=== PATIENT | female | born 1940 | race Caucasian/White ===

== ENCOUNTER → 2017-09-18 10:51 | Outpatient (CLI) | payer MEDICARE, OTHER, SELFPAY ==
--- NOTE | 2017-09-18 10:55 | BI_ITS ---
MAMMOGRAPHY - UNILATERAL SCREENING: RIGHT BREAST REASON FOR EXAM: Female, 76 years old. Routine annual screening examination (unilateral). PERTINENT HISTORY: Personal history of breast cancer. The patient is status post right mastectomy. TECHNIQUE: Digital unilateral breast may (3D mammographic acquisition) in the CC and MLO projections. 2-D mediolateral oblique (MLO) and craniocaudad (CC) views of both breasts were obtained. CAD: Full Field Digital Mammography with Computer Added Detection was performed. COMPARISON: Comparison is made with prior abdomen examination dated September 02, 2016. FINDINGS: Breast Composition: There are scattered areas of fibroglandular density. There is a stable 7.4 mm x 4.5 mm well-defined nodule in the upper medial portion of the right breast. Stable scattered calcifications in the breasts. There is a linear calcification in the axillary region of the breast measuring 2.1 cm in longitudinal dimension by 3 mm in transverse dimension. This may represent suture granuloma. No other significant abnormalities are identified. There has been no significant change since the prior study. BI/UNILAT RT SCRN W/CAD IMPRESSION: Stable unilateral screening mammogram. Yearly follow-up mammogram recommended. (A) ASSESSMENT CATEGORY: BIRADS Category 2: Benign. A letter regarding these results will be sent to the patient by the facility within 30 days. Approximately 10% of breast cancers are not detected by mammography. A normal mammogram should not delay biopsy of a clinically suspicious abnormality. [id number] Electronically Signed: Ford Monroe MD at 12:59 EDT Tel [phone], Service support ,
== END ==
PROVIDERS: Family Provider Family Medicine; PCP Family Medicine; Visit Provider Family Medicine
DX: Z12.31 Encounter for screening mammogram for malignant neoplasm of breast (principal)
CPT/HCPCS: 77061; 77063; 77067; G0279

== ENCOUNTER → 2017-11-01 13:27 | Outpatient (CLI) | payer MEDICARE, OTHER, SELFPAY ==
[2017-11-01 16:09] LABS: Absolute Lymphocyte Count 1.11 X10^3/ul (0.83-4.51); Absolute Neutrophil Count 7.2 X10^3/uL (2.0-7.7); Basophil# 0.03 X10^3/uL; Basophil% 0.3 % (0-1); Eosinophil# 0.04 X10^3/uL; Eosinophils% 0.4 % (0-5); Hematocrit 40.9 % (37-47); Hemoglobin 13.5 g/dl (12.0-15.0); Lymphocyte # 1.11 X10^3/ul (4.0); Lymphocyte % 12.2 % (19-41); Mean Corpuscular Hgb 29.2 pg (27.0-32.0); Mean Corpuscular Volume 88.5 fL (81-99); Mean Platelet Vol. 9.5 fl (6.2-12.0); Monocyte# 0.66 X10^3/uL; Monocyte% 7.3 % (0-10); Neutrophil # 7.24 X10^3/uL (2.7-7.7); Neutrophil % 79.7 % (47-70); Platelet Count 263 K/mm3 (150-450); RBC Distribution Width CV 13.4 % (11.6-14.6); RBC Distribution Width SD 42.7 fl (35.1-43.9); Red Blood Count 4.62 M/mm3 (4.2-5.4); White Blood Count 9.1 K/mm3 (4.4-11.0)
[2017-11-01 16:14] LABS: POSITIVE COUNT NO; POSITIVE DIFFERENTIAL NO; POSITIVE MORPHOLOGY NO
[2017-11-01 16:29] LABS: ALB/GLOB Ratio 0.9 RATIO (0.9-2.4); AST(SGOT) 14 U/L (15-37); Alanine Aminotransfer ALT/SGPT 22 U/L (13-56); Albumin, Serum 3.6 g/dL (3.2-5.0); Alkaline Phosphatase 61 U/L (45-117); Anion Gap 7 (5-15); BUN 16 mg/dL (7-18); BUN/Creat Ratio 24.6 RATIO (10-20); CRP < 2.90 mg/L (0.0-3.0); Calcium,Total 9.1 mg/dL (8.5-10.1); Chloride 105 mmol/L (98-107); Creatinine, Serum 0.65 mg/dL (0.55-1.02); EST Glomerular Filtration Rate 94 mL/min (>60); Est Glom Filt Rate - Afr Amer 114 mL/min (>60); Globulin 3.8 g/dL (2.2-4.2); Glucose 105 mg/dL (74-106); Lipase 96 U/L (73-393); Potassium 3.8 mmol/L (3.5-5.1); Protein, Total 7.4 g/dL (6.4-8.2); Sodium Level 141 mmol/L (136-145)
== END ==
PROVIDERS: Family Provider Family Medicine; PCP Family Medicine; Visit Provider Family Medicine
DX: K29.00 Acute gastritis without bleeding (principal); K59.09 Other constipation
CPT/HCPCS: 36415; 80053; 83630; 83690; 85025; 86140; 87177; 87209; 87493; 87506

== ENCOUNTER → 2017-12-01 09:36 | Outpatient (CLI) | payer MEDICARE, OTHER, SELFPAY ==
[2017-12-01 10:21] LABS: Cholesterol 185 mg/dL (200); High Density Lipoprotein 68 mg/dL; Triglycerides 86 mg/dL; Very Low Density Lipoprotein 17 mg/dL (5-40)
[2017-12-01 10:30] LABS: Hemoglobin A1c 6.1 % (4.2-6.3)
== END ==
PROVIDERS: Family Provider Family Medicine; PCP Family Medicine; Visit Provider Family Medicine
DX: E78.5 Hyperlipidemia, unspecified (principal); R73.03 Prediabetes
CPT/HCPCS: 36415; 80061; 83036

== ENCOUNTER → 2018-09-23 | Outpatient (CLI) | payer MEDICARE, OTHER, SELFPAY ==
[2016-12-22 07:16] VITALS: BMI 33.4
[2018-09-23 10:06] LABS: Absolute Lymphocyte Count 1.46 X10^3/ul (0.83-4.51); Absolute Neutrophil Count 4.8 X10^3/uL (2.0-7.7); Basophil# 0.04 X10^3/uL; Basophil% 0.6 % (0-1); Eosinophil# 0.15 X10^3/uL; Eosinophils% 2.1 % (0-5); Hematocrit 38.6 % (37-47); Hemoglobin 12.5 g/dl (12.0-15.0); Lymphocyte # 1.46 X10^3/ul (4.0); Lymphocyte % 20.8 % (19-41); Mean Corp Hgb Conc 32.4 g/gl (32-36); Mean Corpuscular Hgb 28.6 pg (27.0-32.0); Mean Corpuscular Volume 88.3 fL (81-99); Mean Platelet Vol. 8.9 fl (6.2-12.0); Monocyte# 0.58 X10^3/uL; Monocyte% 8.3 % (0-10); Neutrophil # 4.77 X10^3/uL (2.7-7.7); Neutrophil % 68.1 % (47-70); Platelet Count 212 K/mm3 (150-450); RBC Distribution Width CV 14.1 % (11.6-14.6); RBC Distribution Width SD 45.6 fl (35.1-43.9); Red Blood Count 4.37 M/mm3 (4.2-5.4)
[2018-09-23 10:08] LABS: POSITIVE COUNT NO; POSITIVE DIFFERENTIAL NO; POSITIVE MORPHOLOGY NO
[2018-09-23 10:19] LABS: Hemoglobin A1c 6.1 % (4.2-6.3)
[2018-09-23 10:33] LABS: AST(SGOT) 13 U/L (15-37); Alanine Aminotransfer ALT/SGPT 18 U/L (13-56); Albumin, Serum 3.6 g/dL (3.2-5.0); Alkaline Phosphatase 71 U/L (45-117); Anion Gap 6 (5-15); BUN 21 mg/dL (7-18); BUN/Creat Ratio 29.6 RATIO (10-20); Calcium,Total 9.2 mg/dL (8.5-10.1); Chloride 106 mmol/L (98-107); Cholesterol 187 mg/dL (200); Creatinine, Serum 0.71 mg/dL (0.55-1.02); EST Glomerular Filtration Rate 85 mL/min (>60); Est Glom Filt Rate - Afr Amer 103 mL/min (>60); Globulin 3.6 g/dL (2.2-4.2); Glucose 105 mg/dL (74-106); High Density Lipoprotein 66 mg/dL; Protein, Total 7.2 g/dL (6.4-8.2); Sodium Level 142 mmol/L (136-145); Triglycerides 121 mg/dL; Very Low Density Lipoprotein 24 mg/dL (5-40)
[2018-09-23 10:38] LABS: Microalbumin,Random Urine 9.6 mg/L (NO RANGE EST.); Microalbumin:Creatinine Ratio 8.9 mg/g CRE (<30 mg/g CRE)
== END | disposition home or self-care (01) ==
LOC: LAB.FUTURE 09:39
PROVIDERS: Family Provider Family Medicine; PCP Family Medicine; Referring Provider Family Medicine; Visit Provider Family Medicine
DX: I10 Essential (primary) hypertension (principal); R73.03 Prediabetes; Z51.81 Encounter for therapeutic drug level monitoring; R53.83 Other fatigue; E78.5 Hyperlipidemia, unspecified
CPT/HCPCS: 36415; 80053; 80061; 82043; 82570; 83036; 85025

== ENCOUNTER → 2018-10-04 | Outpatient (CLI) | payer MEDICARE, OTHER, SELFPAY ==
--- NOTE | 2018-10-04 16:07 | MRI_ITS ---
STUDY: MRI BRAIN WITHOUT CONTRAST REASON FOR EXAM: Female, 77 years old. Memory loss, headache and anxiety. TECHNIQUE: Standardized multiplanar fat and water weighted pulse sequences were obtained. COMPARISON: Prior comparison studies are not available for review at this time. FINDINGS: There is mild cerebral atrophy with widening of the extra-axial spaces and ventricular dilatation. Normal white matter tracts of the supratentorial brain. There is confluent periventricular hyperintensity cloaking the lateral ventricles, consistent with periventricular leukoaraiosis. There is no evidence for recent intracranial ischemia or other cause of cytotoxic edema on diffusion weighted imaging (DWI). Normal T2* images of the brain without demonstrated susceptibility artifact. There is no demonstrated hemosiderin stain. Normal bilateral basal ganglia. Normal thalami. There is no extra-axial fluid accumulation. Normal flow voids within the major intracranial circulation suggesting patency by spin echo criteria. Normal sella turcica, pituitary gland, infundibular stalk, optic chiasm and hypothalamus. Normal tectal plate and pineal gland. Normal midbrain, gerson and medulla. There are mild involutional changes of the cerebellum. There are large basal cisterns. Normal bilateral temporal bones. Normal bilateral internal auditory canals. There is an ocular lens implant of the left globe. Normal right globe. The intraorbital contents otherwise are normal. There is mild mucoperiosteal thickening within the ethmoid sinuses. Mucous retention cysts are visible in bilateral maxillary sinuses. Normal calvarium and skull base. Normal visualized soft tissue structures. Normal visualized upper cervical spine. MRI/Brain without Contrast IMPRESSION: 1. Involutional changes of the brain, as described above. 2. No MR evidence of acute infarct. Electronically Signed: Bertha Pandey MD at 9:04 EDT , Service support ,
== END | disposition home or self-care (01) ==
LOC: MRI 16:02
PROVIDERS: Family Provider Family Medicine; PCP Family Medicine; Referring Provider Family Medicine; Visit Provider Family Medicine
DX: R41.3 Other amnesia (principal); R51 Headache
CPT/HCPCS: 70551

== ENCOUNTER → 2018-10-20 | Outpatient (CLI) | payer MEDICARE, OTHER, SELFPAY ==
[2016-12-22 07:16] VITALS: BMI 33.4
--- NOTE | 2018-10-20 10:27 | BI_ITS ---
MAMMOGRAPHY - UNILATERAL SCREENING: RIGHT BREAST REASON FOR EXAM: Female, 77 years old. Routine annual screening examination (unilateral). PERTINENT HISTORY: Personal history of breast cancer. Prior left mastectomy. Mother with breast cancer. TECHNIQUE: Digital unilateral breast rita (3D mammographic acquisition) in the CC and MLO projections. 2-D mediolateral oblique (MLO) and craniocaudad (CC) views of both breasts were obtained. CAD: Full Field Digital Mammography with Computer Added Detection was performed. COMPARISON: Comparison is made with prior examination of September 18, 2017 and August 16, 2013. FINDINGS: Breast Composition: There are scattered areas of fibroglandular density. There are no dominant masses or suspicious calcifications. Stable 7.4 mm x 4.5 mm well-defined nodule in the axillary region of the right breast. Stable dense calcification in the axillary region of the right breast as well. No other significant abnormalities are identified. There has been no significant change since the prior study. BI/SCREEN MAMM (CAD) W/RITA UNI R IMPRESSION: Stable unilateral screening mammogram. Yearly follow-up mammogram recommended. (A) ASSESSMENT CATEGORY: BIRADS Category 2: Benign. A letter regarding these results will be sent to the patient by the facility within 30 days. Approximately 10% of breast cancers are not detected by mammography. A normal mammogram should not delay biopsy of a clinically suspicious abnormality. [id number] Electronically Signed: Ford Monroe, at 11:40 EDT , Service support ,
== END | disposition home or self-care (01) ==
LOC: OPBI 10:25
PROVIDERS: Family Provider Family Medicine; PCP Family Medicine; Referring Provider Family Medicine; Visit Provider Family Medicine
DX: Z12.31 Encounter for screening mammogram for malignant neoplasm of breast (principal)
CPT/HCPCS: 77061; 77067; G0279

== ENCOUNTER 2019-02-02 15:00 | Outpatient (RCR) | payer MEDICARE, OTHER, SELFPAY ==
--- NOTE | 2018-12-29 17:00 | SOAP_ITS ---
REASON FOR REFERRAL: The Patient is a 78 year old female referred for clinical assessment of the patients cognitive communication abilities at [facility] on 12/29/2018 due to concerns for progressing declines in information recall and increasing presence and frequency of anomia. The Patient reports her cognitive based symptoms began following a 2016 computer ?hack?, in which she had followed up with a prompt on her computer to contact a support personnel, which appears to have jeopardized her bank account temporarily. She states that her cognitive communication abilities have gradually declined from this point. She further reports she no longer trusts anyone following this incident, and reportedly does seem to experience anxiety at a more rapid rate. She notes that it has become much harder to find the correct word during conversations, and becomes somewhat flustered easily, which leads to her often straying from topics and losing her train of thought. This leads to the Patient often from conversation opportunities, and experiences difficulties interjecting herself into conversations. She reports gradual and now persistent distractibility, with the Patient reporting disengagement from tasks prior to completion, with multiple tasks left half completed, and does notice she will enter a room and forget why she was going there (though often does remember given time). She reports she has become less involved in previous hobbies and enjoyable activities (oil painting, crocheting, etc.), and reports she often just ?sits and watches TV?. 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 They further notice a gradual change in her memory capabilities, and more notably have noticed a gradual deterioration in her ability to express herself, often getting stuck on words, and has been noted to occasionally repeat herself at higher frequencies. She has been noted to make mistakes with less cognitively complex tasks that are atypical from her prior level of functioning (cooking, shopping), and are significantly concerned with her ability to manage her finances. She currently resides alone in [place], though reports she has considered moving to the [place] area to be closer to family upon their recommendations, though is hesitant to leave her current residence and possibly relinquish further independence. She is not vocationally active (retired from [employer] in 1999; management), though currently maintains social roles and responsibility (cares for friends who are ill, involved in her sikhism, etc.). She has graduated from high school, with completion of some post-secondary management classes. She currently ambulates independently without the use of an assistive device, though is reportedly considering knee replacement surgery. She reports she manages her own medication, though occasionally forgets to take her medication. 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 Her affect appears somewhat flat and under-reactive at times, though does noticeably become anxious and somewhat easily frustrated with more complex tasks; despite this she remains pleasant and agreeable throughout. MEDICAL HISTORY: Remote breast cancer, anxiety and depression, obstructive sleep apnea, hypertension, hyperlipidemia, obesity, osteoarthritis, gastroesophageal reflux disease. ADDITIONAL OBJECTIVE ASSESSMENT RESULTS: 10/05/2018 MRI revealed involutional changes of the brain; no evidence of acute infarct; confluent periventricular hyperintensity cloaking the lateral ventricles, consistent with periventricular leukoaraiosis; mild involutional changes of the cerebellum FUNCTIONAL STATUS ASSESSMENT RESULTS: [place]ahan Index of [place] in Activities of Daily Livin/6 Bathin Dressin Toiletin Transferrin Continence: 1 Feedin Mickey ? Ray Instrumental Activities of Daily Living Scale (IADL): 7/8 Ability to Use Telephone: 1 Shoppin Food Preparation: 1 Housekeepin Laundry: 1 Mode of Transportation: 1 Responsibility for Own Medications: 1 Ability to Handle Finances: 1 Functional Ambulation Category (FAC): 5 (ambulatory ? independent) COGNITIVE COMMUNICATION ASSESSMENT QUESTIONNAIRES: Patient Health Questionnaire (PHQ-9): 8 (mild risk of depression) Generalized Anxiety Disorder 7-item (SUYAPA-7) scale: 5 (mild risk of anxiety disorder) [place] Social Network Scale ? 6 (LSNS-6): Family: 12/29 [place]: 02/28 AD8 Dementia Screening Interview: 11/21 Judgment: 1 (positive change) Interest in hobbies: 1 (positive change) Repeating stories / questions: 1 (positive change) Learning new processes: 1 (positive change) Orientation: 0 (negative) resource management specialist: 1 (positive change) Recalling appointments: 1 (positive change) Daily problems thinking / rememberin (positive change) Symptoms of Early Dementia-11 Questionnaire (SED-11Q): Caregivers: 12/25 Patient: 09/24 Dementia Severity Rating Scale (DSRS): 15 (mild) Memory: 3 Speech & Language: 2 Recognition of Family Members: 0 Orientation to Time: [address]: 1 Ability to Make Decisions: 3 Social and Community Activity: 2 Home Activities and Responsibilities: 2 Personal Care ? Cleanliness: 0 Eatin Control of Urination and Bowels: 0 Ability to Get From Place to Place: 1 COGNITIVE COMMUNICATION ASSESSMENT RESULTS: Abbreviated Mental Test ? 4 (AMT-4): 4 (normal) Assessment Test for Delirium & Cognitive Impairment (4AT): 0 (normal) Short Orientation Memory Concentration Test (SOMCT): 24/28 (minimal impairment) [place] Test: Correct: 35/35 Total Time: 4:38 Omissions (right): 0 Omissions (left): 0 Omissions (total): 0 Distractors: 0/264 Scanning Strategy: horizontal Digit Memory Test (DMT): Forward Score: 7 Backwards Score: 4 Total: 11 Standard Score: 75 Percentile Equivalent: 5th Trial Making Test (TMT): Part A: 68 seconds (> 78 seconds abnormal) Errors: 0 Part B: 151 seconds (> 273 seconds abnormal) Errors: 0 Executive Interview (EXIT-25): 14 (< 15 suggests executive functioning deficits) Number / Letter: 1 Word Fluency: 2 Design Fluency: 1 Anomalous Sentence Reproduction: 1 Thematic Perception: 0 Memory / Distraction: 1 Inference Task: 0 Automatic Behavior I: 0 Automatic Behavior II: 1 Grasp Reflex: 0 Social Habit I: 1 Motor Impersistence: 0 Snout Reflex: 0 Finger-Nose: 0 Go / No-go: 2 Echopraxia I: 0 [place]uria Hand Sequence I: 0 [place] Hand Sequence II: 2 Role Player Task: 0 Echopraxia II: 0 Complete Command Task: 1 Serial Order Reversal Task: 0 Counting Task: 0 Utilization Behavior: 0 Imitation Behavior: 1 [place] Naming Test ? Second Edition (BNT-2): Number of correct responses: 31 Stimulus cues provided: 30 Correct following stimulus cues: 0 Phonological Paraphasias: 1 Verbal Paraphasias: 0 Neologistic Paraphasias: 0 Multi-word Paraphasias: 0 Perceptual Paraphasias: 0 TOTAL NUMBER CORRECT: 48 TOTAL SCORE: 31 (mean: 48.9, SD: 6.3) Aphasia Severity Rating Scale (ASRS): 3-4 (of 5) Apraxia of Speech Rating Scale (ASRS-v1): 0 (not present) COGNITIVE COMMUNICATION ASSESSMENT RESULTS (QUALITATIVE): LANGUAGE FUNCTIONING: language profile marked by frequent naming errors (anomia / dysnomia) most prominent during confrontation naming tasks vs. conversational speech, though this does occur at a higher than normal frequency than expected and is paired with subjective increase in anxiety; does occasionally demonstrate benefit from circumlocution; somewhat flat effect noted; occasional prolongations during more complex tasks, though at lower frequencies, would not classify as a neurogenic disfluency; repetition intact for smaller stimulus items, with errors during larger stimulus items likely attributed to working memory deficits; no paraphasias; no apraxia; no clinically significant dysarthria or vocal abnormalities; no agraphia; no alexia. EXECUTIVE FUNCTIONING: suboptimal thought organization with noted circumstantial thought processing (eventually gets to point after talking around) that often leads to fragmented thoughts and an inability to completely express her thought, with occasional obsessive thinking (returns to prior response / topic without a natural transition); she is quicker to frustration/ quickly becomes overwhelmed with more complex tasks and occasionally requires encouragement to continue tasks; she is under-reactive at times, similar to a subtle abulia vs. apathetic affect. MEMORY: disrupted working memory complicating encoding and consolidation without a clear primacy or recency effect; overall preserved prospective memory (though this can additionally be complicated by her attention / executive functioning disruptions); overall preserved explicit and implicit memory. ATTENTION: preserved sustained attention; rather impaired attention as the complexity of demands increase (divided, selective, and alternating attention). VISUOSPATIAL ABILITIES: no signs of disrupted visuospatial functioning appreciated. COMPLICATING FACTORS: complicating factors would include possible depression / anxiety associated with her apparent cognitive communication impairments and concomitant disruption in her personal relationships and responsibilities. RESULTS OF THE EVALUATION: The Patient presents with mild to moderate cognitive communication deficits with mild to moderate anomia with no current clear etiology of cause, though one would suspect a progressive neurological cause, with results possibly impacted by anxiety / depression. RECOMMENDATIONS FOR INTERVENTION: The Patient requires continued skilled speech-language intervention targeting training and implementation of internal and external compensatory cognitive processing compensatory strategies (with initial considerations for external supports and time pressure management training); training and implementation of recommended expressive communication strategies targeting anomia (with considerations for sematic feature analysis training); training and implementation of a home based cognitive maintenance program to promote the highest level of maintained cognitive communication functioning; Patient and family education regarding cognitive communication changes associated with the appropriate etiological causes (pending workup); and continued formal and informal assessment of the cognitive communication profile throughout the intervention cycle, with adjustments to the treatment plan as clinically indicated. FUNCTIONAL OUTCOMES: OUTCOME 1: the Patient will utilize compensatory cognitive processing strategies identified and implemented during structured therapeutic to facilitate improved cognitive processing and achievement of the highest level of safe, independent functioning with 100% accuracy over 2 consecutive sessions. OUTCOME 2: the Patient will independently utilize internal word finding strategies (semantic feature analysis) to reduce the presence of anomia and facilitate listener comprehension during both structured therapeutic tasks and unstructured / conversational speech, in 2 out of 3 sessions. OUTCOME 3: the Patient will participate in training and implementation of a home based cognitive maintenance program established within the intervention cycle to facilitate preserved cognitive communication abilities, and safe independent functioning. OUTCOME 4: the Patient will participate in continual assessment of the cognitive communication profile to facilitate comprehensive objective date in regards to changes in baseline level of cognitive functioning at the supervised level. OUTCOME 5: goal adjustment as needed Ruy Lazaro M.A., CCC-QUILTING MACHINE OPERATOR, CBIS MBSImP Certified, LSVT Certified [facility] Speech-Language Pathology Department [email or web address]
== END 2019-02-02 19:00 | disposition home or self-care (01) ==
LOC: SP 15:00
PROVIDERS: Family Provider Family Medicine; PCP Family Medicine; Referring Provider Family Medicine; Visit Provider Family Medicine
DX: G31.84 Mild cognitive impairment of uncertain or unknown etiology (principal); R47.89 Other speech disturbances
CPT/HCPCS: 92507; 92523

== ENCOUNTER → 2019-02-08 10:57 | Outpatient (CLI) | payer MEDICARE, OTHER, SELFPAY ==
[2016-12-22 07:16] VITALS: BMI 33.4
[2019-02-08 12:05] LABS: Vitamin B12 393 pg/mL (211-911)
[2019-02-08 12:07] LABS: Thyroid Stim Hormone (TSH) 1.43 uIU/mL (0.358-3.74)
[2019-02-10 01:39] LABS: Rapid Plasmin Reagin (RPR) NONREACTIVE (NONREACTIVE)
== END ==
PROVIDERS: Family Provider Family Medicine; PCP Family Medicine; Referring Provider Psychiatry & Neurology Neurology; Visit Provider Psychiatry & Neurology Neurology
DX: R41.3 Other amnesia (principal)
CPT/HCPCS: 36415; 82607; 84443; 86592

== ENCOUNTER → 2019-02-20 10:11 | Outpatient (CLI) | payer MEDICARE, OTHER, SELFPAY ==
--- NOTE | 2019-02-20 10:30 | PET_ITS ---
EXAMINATION: FDG PET BRAIN INDICATIONS: A 78-year-old female with history of memory loss, cognitive impairment. COMPARISON EXAMINATION: MRI of the brain report dated 10/04/18. TECHNIQUE: Following the intravenous administration of 10.3 mCi of F-18 deoxyglucose via the right antecubital fossa, multiplanar image acquisitions of the brain obtained at 60 minutes post radiopharmaceutical administration reveal: SERUM GLUCOSE LEVEL: 96 mg/dl. HEIGHT: 67 inches. WEIGHT: 182 lbs FINDINGS: 1. Qualitative, visual analysis demonstrates decreased glucose metabolism manifest in the bilateral temporal, as well as right parietal cerebral cortex. There is otherwise relatively symmetric and preserved glucose metabolism noted in the bilateral frontal, left parietal, bilateral occipital, as well as right-left cerebellar hemispheres and basal ganglia. PET/PET Brain Metabolic Eval IMPRESSION: 1. Altered glucose metabolism defined in the right parietal and bilateral temporal cerebral cortex is most consistent with cholinergic dysfunction likely attributed to dementia, Alzheimer type. (Sirena and Clifton, Molecular Imaging and Biology 4:239, 2004). Electronic Signature Yordan Funez D.O. Electronically Signed: Yordan Funez DO at 23:33 EDT Tel , Service support ,
== END ==
PROVIDERS: Family Provider Family Medicine; PCP Family Medicine; Referring Provider Psychiatry & Neurology Neurology; Visit Provider Psychiatry & Neurology Neurology
DX: R41.3 Other amnesia (principal); Z85.9 Personal history of malignant neoplasm, unspecified
CPT/HCPCS: 78608; A9552

== ENCOUNTER 2019-09-19 11:42 | Emergency (ER) | payer MEDICARE, OTHER, SELFPAY ==
[2019-09-19 11:44] VITALS: BP 159/80; PULSE 71; RESP 18; TEMP 36.3; O2SAT 100; BMI 25.3
--- NOTE | 2019-09-19 11:54 | CT_ITS ---
STUDY: CT BRAIN WITHOUT CONTRAST REASON FOR EXAM: Female, 78 years old. FALL, STRUCK HEAD ON CONCRETE, SWELLING ABOVE LT EYEBROW, NO LOC RADIATION DOSAGE (If Supplied By Facility): CTDIvol = ( 44.99 ) mGy, DLP = ( 812.98 ) mGycm TECHNIQUE: Transaxial CT imaging of the brain was performed without administration of intravenous contrast material. Individualized dose optimization techniques were used for this CT. COMPARISON: No relevant priors. FINDINGS: Soft tissue hematoma overlying the left orbital and left frontal regions. There is hyperostosis frontalis internus. There is mild cerebral atrophy with widening of the extra-axial spaces and ventricular dilatation. There are areas of decreased attenuation within the white matter tracts of the supratentorial brain, consistent with microvascular disease changes. Normal basal ganglia and thalami. Normal brainstem. Normal cerebellum. There is no intracranial hemorrhage. There are no findings of an acute ischemic infarction. Normal visualized paranasal sinuses. CT/Brain/Head without Contrast IMPRESSION: Chronic involutional changes of the brain. Soft tissue swelling and hematoma overlying the left orbit and left frontal bones. Electronically Signed: Ford Monroe, at 12:37 EDT , Service support ,
--- NOTE | 2019-09-19 11:54 | CT_ITS ---
STUDY: CT FACIAL BONES WITHOUT CONTRAST REASON FOR EXAM: Female, 78 years old. FALL, STRUCK HEAD ON CONCRETE, SWELLING ABOVE LT EYEBROW, NO LOC RADIATION DOSAGE (If Supplied By Facility): CTDIvol = ( 29.38 ) mGy, DLP = ( 591.53 ) mGycm TECHNIQUE: The patient was scanned in a multi detector CT scanner. Sagittal and coronal images were reconstructed. Individualized dose optimization techniques were used for this CT. COMPARISON: None. FINDINGS: Soft tissue swelling and hematoma overlying the left orbit and left frontal bone. 7.3 mm retention cyst or polyp in the inferior anterior aspect of the left maxillary sinus. 5.3 mm polyp or retention cyst in the anterior aspect of the right maxillary sinus. Normal orbital alonso and orbital contents. Normal nasal bones and anterior nasal spine. Normal facial bones. There is no demonstrated fracture. Normal visualized paranasal sinuses. CT/Sinus/Facial Bone IMPRESSION: Small mucosal polyps/cysts in the maxillary sinuses. Soft tissue swelling and hematoma overlying the left orbit and left frontal bone. Electronically Signed: Ford Monroe, at 12:39 EDT , Service support ,
--- NOTE | 2019-09-19 11:54 | CT_ITS ---
STUDY: CT CERVICAL SPINE WITHOUT CONTRAST REASON FOR EXAM: Female, 78 years old. FALL, STRUCK HEAD ON CONCRETE, SWELLING ABOVE LT EYEBROW, NO LOC RADIATION DOSAGE (If Supplied By Facility): CTDIvol = ( 17.83 ) mGy, DLP = ( 346.14 ) mGycm TECHNIQUE: High resolution transaxial imaging was performed without contrast material. Sagittal and coronal images were reconstructed. Individualized dose optimization techniques were used for this CT. COMPARISON: None FINDINGS: Normal craniovertebral junction. There are degenerative changes of the anterior atlantoaxial articulation. Normal odontoid process. Normal cervical lordosis. Normal vertebral bodies and posterior osseous elements. C2-3: Normal endplates. Normal disc height and morphology. Normal central canal and intervertebral neuroforamina. C3-4: Mild disc space narrowing. Facet joint osteoarthritis and hypertrophy more prominent on the left side. No significant neural foraminal stenosis is seen. C4-5: Mild degree of disc space narrowing. Facet joint osteoarthritis and hypertrophy more prominent on the left side. No significant stenosis seen. C5-6: Marked degree of disc space narrowing with spondylosis. Uncovertebral arthrosis. Mild to moderate degree of stenosis on the right side with moderate to severe degree of stenosis of the left neural foramen. C6-7: Marked degree of disc space narrowing with spondylosis. Uncovertebral arthrosis and spondylosis. Bilateral neural foraminal stenosis worse on the left side. C7-T1: Disc space narrowing. Spondylosis. No significant stenosis is seen. Normal visualized soft tissue structures. CT/Spine Cervical without Contras IMPRESSION: Multilevel degenerative changes, as described above. Electronically Signed: Ford Monroe, at 12:44 EDT , Service support ,
--- NOTE | 2019-09-19 11:56 | ED.VIS.GEN ---
History of Present Illness Chief Complaint: Head Injury Narrative: Patient is a 78-year-old female who presents after a fall. Her shoe caught and she fell down 2 steps onto a concrete floor striking her head above the left eyebrow. She denies loss of consciousness. No headache or vomiting. She denies any other injuries to the chest abdomen back or extremities. She is not on anticoagulation. Past Medical History - Allergies and Home Meds Allergies/Adverse Reactions: Allergies JOEL Inhibitors Allergy (Verified 09/19/19 11:42) Swelling atenolol Allergy (Verified 09/19/19 11:42) Unknown citalopram [From Celexa] Allergy (Verified 09/19/19 11:42) Unknown nitrofurantoin [From Macrobid] Allergy (Verified 09/19/19 11:42) Unknown Penicillins Allergy (Verified 09/19/19 11:42) Rash ondansetron [From Zofran (as hydrochloride)] Adverse Reaction (Verified 09/19/19 11:42) Unknown Primary Care Physician: Sierra Pinzon DO [Primary Care Provider] - Past Medical History: - - Dementia, hypertension, GERD Surgical History: - - Hysterectomy, left total mastectomy, cholecystectomy, tonsillectomy. Smoking Status: Former smoker - Family History Maternal Family History: Reports: - - There with TIA, heart disease later in life, lived into 90s. Paternal Family History: Reports: - - Father with diabetes, hypertension and history of a stroke. Sibling Family History: Reports: - - Patient brother with diabetes mellitus history. Review of Systems All systems negative except as indicated General: Denies: Fever Eyes: Denies: Visual changes - bilaterally ENT: Denies: Bilateral ear pain Cardiovascular: Denies: Chest pain Respiratory: Denies: Dyspnea Gastrointestinal: Denies: Nausea, Vomiting Musculoskeletal: Denies: Back pain, Extremity Pain Neurological: Denies: Headache Hematologic: Denies: Easy bleeding Physical Exam Vital Signs/Narrative: Vital Signs Temp Pulse Resp BP Pulse Ox 09/19/19 11:44 97.4 F L 71 18 159/80 H 100 Inital Vital Signs reviewed: Yes General: Well nourished Head: Normocephalic, - - There is a large hematoma over the left eyebrow no palpable skull fracture Eyes: Perrl, EOMI ENT: Moist mucous membranes Neck: Supple Cardiovascular: Regular rate, Regular rhythm Respiratory: No distress, CTA bilaterally Abdomen: Soft, Nontender Extremities: Nontender, - - Active full range of motion x4 extremities Skin: Normal color Neurological: Alert, - - GCS 15 no focal or lateralizing neurological deficits Psychological: Normal affect Diagnostic/Tx/Re-eval Impressions Brain CT 09/19/19 11:54 IMPRESSION: Chronic involutional changes of the brain. Soft tissue swelling and hematoma overlying the left orbit and left frontal bones. Electronically Signed: Ford Monroe, at 12:37 EDT , Service support , Cervical Spine CT 09/19/19 11:54 IMPRESSION: Multilevel degenerative changes, as described above. Electronically Signed: Ford Monroe at 12:44 EDT , Service support , Facial/Sinus 09/19/19 11:54 IMPRESSION: Small mucosal polyps/cysts in the maxillary sinuses. Soft tissue swelling and hematoma overlying the left orbit and left frontal bone. Electronically Signed: Ford Monroe at 12:39 EDT , Service support , 09/19/19 11:54 Brain/Head without Contrast [CT] Stat CT Cervical [Spine Cervical without Contras] [CT] Stat Sinus/Facial Bone [CT] Stat - Medical Decision Making CT imaging as above is negative for fracture or intracranial hemorrhage. Patient advised on supportive care. She does understand return for new or worsening symptoms. She was discharged. ED Disposition - Plan for ED Patient: Disposition: Home or Assisted Living Diagnosis: Fall, Closed head injury, Facial hematoma Instructions: ED Head Injury Adult, ED Hematoma Referrals: Sierra Pinzon DO [Primary Care Provider] -
[2019-09-19] MEDS: traMADol 50 MG Tablet PO (13:12)
== END 2019-09-19 13:28 | disposition home or self-care (01) ==
PROVIDERS: Emergency Provider Emergency Medicine; PCP Family Medicine
DX: S00.12XA Contusion of left eyelid and periocular area, initial encounter (principal); R40.2410 Glasgow coma scale score 13-15, unspecified time; J34.1 Cyst and mucocele of nose and nasal sinus; W10.9XXA Fall (on) (from) unspecified stairs and steps, initial encounter; Y93.9 Activity, unspecified; Y92.9 Unspecified place or not applicable; I10 Essential (primary) hypertension; F03.90 Unspecified dementia, unspecified severity, without behavioral disturbance, psychotic disturbance, mood disturbance, and anxiety; K21.9 Gastro-esophageal reflux disease without esophagitis; Z79.899 Other long term (current) drug therapy; Z87.891 Personal history of nicotine dependence
CPT/HCPCS: 70450; 70486; 72125; 99283

== ENCOUNTER → 2020-01-28 | Outpatient (CLI) | payer MEDICARE, OTHER, SELFPAY ==
[2020-01-28 11:34] VITALS: BMI 25.3
[2020-01-29 10:42] LABS: Mucous, Urine 0 SEEN /hpf (<or=2+)
[2020-01-29 10:58] LABS: Color, Urine Yellow (Yellow); Glucose, Dipstick Normal (Normal); Ketone-Dipstick Negative (Negative); Leukocyte Esterase-Dipstick 500 /ul (Negative); Nitrite-Dipstick Negative (Negative); Occult Blood-Urine 150 /ul (Negative); Protein-Dipstick 30 mg/dl (Negative); Specific Gravity, Urine 1.015 (1.002-1.030); Urine Bilirubin Dipstick Negative (Negative); Urine Clarity Sl. Cloudy (Clear); Urine Urobilinogen Normal (Normal)
[2020-01-29 11:06] LABS: Bacteria 1+ /hpf (None Seen); Red Blood Cells-Urine 10-25 SEEN /hpf (0-5); Squamous Epithelial Cells - UA 0-5 SEEN /hpf (5-10); White Blood Cells 25-50 SEEN /hpf (0-5)
== END | disposition home or self-care (01) ==
PROVIDERS: PCP Family Medicine; Referring Provider Physician Assistant Medical; Visit Provider Physician Assistant Medical
DX: N30.91 Cystitis, unspecified with hematuria (principal); R30.0 Dysuria; R35.0 Frequency of micturition
CPT/HCPCS: 81001; 87086; 87088; 87186

== ENCOUNTER 2020-05-23 11:04 | Emergency (ER) | payer MEDICARE, OTHER, SELFPAY ==
[2020-01-28 11:34] VITALS: BMI 25.3
[2020-05-23 11:06] VITALS: BP 158/73; PULSE 66; RESP 18; TEMP 36.4; O2SAT 98; BMI 25.4
--- NOTE | 2020-05-23 11:18 | CT_ITS ---
STUDY: CT ABDOMEN AND PELVIS WITH CONTRAST REASON FOR EXAM: Female, 79 years old. CP X 3 DAYS UNDER LT BREAST AND ABD, HX BREAST CANCER W/ LEFT MASTECTOMY RADIATION DOSAGE (If Supplied By Facility): CTDIvol = ( 13.69 ) mGy, DLP = ( 712.52 ) mGycm TECHNIQUE: Transaxial images were obtained from the dome of the diaphragm to the symphysis pubis without oral contrast. [id number] 100ML was administered. Sagittal and coronal images were reconstructed. Individualized dose optimization techniques were used for this CT. COMPARISON: None. FINDINGS: The visualized lung bases are unremarkable. The visualized portions of the heart are within normal limits. Normal liver. There are surgical clips in the gallbladder fossa consistent with a prior cholecystectomy. Normal spleen. There is diffuse atrophy of the pancreas. Normal bilateral adrenal glands. Normal right kidney. Normal left kidney. There is a small hiatal hernia. Normal small intestine. There are multiple colonic diverticula consistent with diverticulosis. Moderate amount of fecal material in the colon. The appendix is visualized and appears normal. There is diffuse atherosclerotic calcification of the abdominal aorta and its major visceral branches, without a demonstrated aneurysm. Normal inferior vena cava. Normal retroperitoneum. Normal urinary bladder. A pessary device is seen in the region of the uterine cervix. Normal abdominal wall. There are degenerative changes of the visualized lumbar spine. CT/Abdomen/Pelvis W IV Cont ONLY IMPRESSION: Status post cholecystectomy. Moderate degree of fecal material is seen in the colon. Electronically Signed: Ford Monroe, at 12:23 EST , Service support ,
--- NOTE | 2020-05-23 11:18 | EKG12_ITS ---
Test Reason : Blood Pressure : / mmHG Vent. Rate : 065 BPM Atrial Rate : 065 BPM P-R Int : 170 ms QRS Dur : 100 ms QT Int : 388 ms P-R-T Axes : 040 008 049 degrees QTc Int : 403 ms Normal sinus rhythm Moderate voltage criteria for LVH, may be normal variant Borderline ECG Confirmed by RIZWANA DESAI, PAT ([id number]), map editor NUVIA MCKOY ([id number]) on 05/27/2020 9:48:20 AM Referred By: CURTIS Confirmed By:PAT WAGONER MD
[2020-05-23 11:31] LABS: Absolute Neutrophil Count 4.1 X10^3/uL (2.0-7.7); Basophil# 0.06 X10^3/uL; Eosinophil# 0.11 X10^3/uL; Eosinophils% 1.8 % (0-5); Hematocrit 42.3 % (37-47); Hemoglobin 13.6 g/dL (12.0-15.0); Lymphocyte % 21.4 % (19-41); Mean Corp Hgb Conc 32.2 g/dL (32-36); Mean Corpuscular Hgb 29.1 pg (27.0-32.0); Mean Corpuscular Volume 90.6 fL (81-99); Mean Platelet Vol. 8.8 fl (6.2-12.0); Monocyte# 0.54 X10^3/uL; Monocyte% 8.9 % (0-10); NRBC Flagged by Analyzer 0 % (0-5); Neutrophil # 4.05 X10^3/uL (2.7-7.7); Neutrophil % 66.6 % (47-70); Platelet Count 242 K/mm3 (150-450); RBC Distribution Width CV 12.8 % (11.6-14.6); RBC Distribution Width SD 42.1 fl (35.1-43.9); Red Blood Count 4.67 M/mm3 (4.2-5.4); White Blood Count 6.1 K/mm3 (4.4-11.0)
[2020-05-23 11:37] LABS: Bacteria 0 SEEN /hpf (None Seen); Mucous, Urine 0 SEEN /hpf (<or=2+); Red Blood Cells-Urine 0 SEEN /hpf (0-5)
[2020-05-23 11:38] LABS: Color, Urine Straw (Yellow); Glucose, Dipstick Normal (Normal); Ketone-Dipstick Negative (Negative); Leukocyte Esterase-Dipstick 500 /ul (Negative); Nitrite-Dipstick Negative (Negative); Occult Blood-Urine Negative /ul (Negative); Protein-Dipstick Negative (Negative); Urine Bilirubin Dipstick Negative (Negative); Urine Clarity Sl. Cloudy (Clear); Urine Urobilinogen Normal (Normal)
[2020-05-23 11:50] LABS: ALB/GLOB Ratio 1.1 RATIO (0.9-2.4); AST(SGOT) 16 U/L (15-37); Alanine Aminotransfer ALT/SGPT 18 U/L (13-56); Albumin, Serum 3.9 g/dL (3.2-5.0); Alkaline Phosphatase 58 U/L (45-117); Anion Gap 4 (5-15); BUN 20 mg/dL (7-18); BUN/Creat Ratio 20.6 RATIO (10-20); Calcium,Total 9.5 mg/dL (8.5-10.1); Chloride 104 mmol/L (98-107); Creatinine, Serum 0.97 mg/dL (0.55-1.02); EST Glomerular Filtration Rate 59 mL/min (>60); Est Glom Filt Rate - Afr Amer 71 mL/min (>60); Estimated Creatinine Clearance 48.22 ml/min; Globulin 3.6 g/dL (2.2-4.2); Glucose 101 mg/dL (74-106); Lipase 141 U/L (73-393); Potassium 4.3 mmol/L (3.5-5.1); Protein, Total 7.5 g/dL (6.4-8.2); Sodium Level 137 mmol/L (136-145)
--- NOTE | 2020-05-23 11:50 | RAD_ITS ---
STUDY: X-RAY CHEST REASON FOR EXAM: Female, 79 years old. CHEST PAIN SINCE WEDNESDAY THAT MOVES FROM STERNUM TO UNDER LEFT BREAST TO ABD. TECHNIQUE: Single AP portable view of the chest. COMPARISON: Comparison is made with prior study dated 11/07/2016. FINDINGS: Surgical clips are seen in the left axillary region. EKG electrodes are seen. Hyperinflation. The lungs are clear. There is no demonstrated pleural abnormality. Normal size heart. Normal mediastinum and socorro. Normal visualized pulmonary arteries. There is atherosclerotic calcification of the aortic arch with tortuosity. There is a mild levoscoliosis of the thoracic spine. Normal visualized ribs, clavicles, and shoulders. There is no demonstrated abnormality of the visualized soft tissue structures of the upper abdomen. RAD/Chest 1 View (Portable) IMPRESSION: Hyperinflation. The lungs are clear. Electronically Signed: Ford Monroe, at 12:20 EST , Service support ,
[2020-05-23 11:52] LABS: Squamous Epithelial Cells - UA 0-5 SEEN /hpf (5-10); White Blood Cells 0-5 SEEN /hpf (0-5)
--- NOTE | 2020-05-23 11:52 | ED.VIS.GEN ---
History of Present Illness Chief Complaint: Chest Pain Informant: Patient, Family Narrative: 79-year-old female presents with concern for chest pain. States it is been intermittent over the past 4 days. Describes it as lasting for minutes to hours. Describes it is aching in nature. Also states that she has been having abdominal pain which she describes in her right upper quadrant. States this is also aching and intermittent. States it is not related to eating. Admits to nausea without vomiting. Denies any urinary symptoms. Denies any fever, chills, cough. Past Medical History - Allergies and Home Meds Allergies/Adverse Reactions: Allergies JOEL Inhibitors Allergy (Verified 05/23/20 11:05) Swelling atenolol Allergy (Verified 05/23/20 11:05) Unknown citalopram [From Celexa] Allergy (Verified 05/23/20 11:05) Unknown nitrofurantoin [From Macrobid] Allergy (Verified 05/23/20 11:05) Unknown Penicillins Allergy (Verified 05/23/20 11:05) Rash ondansetron [From Zofran (as hydrochloride)] Adverse Reaction (Verified 05/23/20 11:05) Unknown Primary Care Physician: Sierra Pinzon DO [Primary Care Provider] - Prior records reviewed: Yes Past Medical History: - - HTN, Alzheimers Surgical History: - - Hysterectomy, left total mastectomy, cholecystectomy, tonsillectomy. Lives: With Family Smoking Status: Never smoker Alcohol: None Drugs: None - Family History Maternal Family History: Family History (Last Updated 01/28/20 @ 11:42 by Zahra Alcocer) Father CVA (cerebral vascular accident) Prostate cancer Family History: Reports: - - There with TIA, heart disease later in life, lived into 90s. Paternal Family History: Family History (Last Updated 01/28/20 @ 11:42 by Zahra Alcocer) Father CVA (cerebral vascular accident) Prostate cancer Family History: Reports: - - Father with diabetes, hypertension and history of a stroke. Sibling Family History: Family History (Last Updated 01/28/20 @ 11:42 by Zahra Alcocer) Father CVA (cerebral vascular accident) Prostate cancer Family History: Reports: - - Patient brother with diabetes mellitus history. Review of Systems General: Denies: Chills, Fever, Sweats Eyes: Denies: Visual changes - bilaterally, Diplopia ENT: Denies: Rhinorrhea, Sore throat Cardiovascular: Reports: Chest pain. Denies: Palpitations Respiratory: Denies: Dyspnea, Cough, Dyspnea on exertion Gastrointestinal: Reports: Abdominal pain, Nausea. Denies: Vomiting, Diarrhea, Melena, Hematochezia Genitourinary: Denies: Dysuria, Hematuria, Frequency Musculoskeletal: Denies: Back pain, Extremity Pain Skin: Denies: Rash, Wounds Neurological: Denies: Headache, Weakness, Numbness Physical Exam Vital Signs/Narrative: Vital Signs Temp Pulse Resp BP Pulse Ox 05/23/20 11:06 97.6 F L 66 18 158/73 H 98 Inital Vital Signs reviewed: Yes General: Well nourished, Well developed, No Acute Distress Head: Normocephalic, Atraumatic Eyes: Perrl, EOMI ENT: Moist mucous membranes, No rhinorrhea Neck: Supple, Nontender Cardiovascular: Regular rate, Regular rhythm, No murmurs Respiratory: No distress, CTA bilaterally, Chest nontender Abdomen: Soft, Nontender, Nondistended, Normal bowel sounds Back: Nontender, Normal Inspection Extremities: Nontender, No edema Skin: Normal color, No rash Neurological: Alert, Oriented x3, Cranial nerves II-XII grossly intact, Normal Strength, Normal Sensation Psychological: Normal affect, Normal Mood Diagnostic/Tx/Re-eval Chest X-Ray - ED: 1 View, Read by ED Physician, Read by Radiologist, Chronic Changes Clinical Impression(s) from Imaging Studies Abdomen/Pelvis CT 05/23/20 11:18 IMPRESSION: Status post cholecystectomy. Moderate degree of fecal material is seen in the colon. Electronically Signed: Ford Monroe, at 12:23 EST , Service support , Chest X-Ray 05/23/20 11:50 IMPRESSION: Hyperinflation. The lungs are clear. Electronically Signed: Ford Monroe, at 12:20 EST , Service support , Laboratory Data 05/23/20 05/23/20 05/23/20 11:10 11:10 11:32 WBC 6.1 RBC 4.67 Hgb 13.6 Hct 42.3 MCV 90.6 MCH 29.1 MCHC 32.2 RDW Std Deviation 42.1 RDW Coeff of Yelitza 12.8 Plt Count 242 MPV 8.8 Immature Gran % (Auto) 0.300 Neut % (Auto) 66.6 Lymph % (Auto) 21.4 [place] % (Auto) 8.9 Eos % (Auto) 1.8 Baso % (Auto) 1.0 Absolute Neuts (auto) 4.1 Absolute Lymphs (auto) 1.30 Nucleated RBC % 0 Sodium 137 Potassium 4.3 Chloride 104 Carbon Dioxide 29.0 Anion Gap 4 L BUN 20 H Creatinine 0.97 Estim Creat Clear Calc 48.22 Est GFR (MDRD) Af Amer 71 Est GFR (MDRD) Non-Af 59 L BUN/Creatinine Ratio 20.6 H Glucose 101 Calcium 9.5 Total Bilirubin 0.50 AST 16 ALT 18 Alkaline Phosphatase 58 Troponin I < 0.015 Total Protein 7.5 Albumin 3.9 Globulin 3.6 Albumin/Globulin Ratio 1.1 Lipase 141 Urine Color Straw Urine Clarity Sl. Cloudy Urine pH 7.0 Ur Specific Reagan 1.010 Urine Protein Negative Urine Glucose (UA) Normal Urine Ketones Negative Urine Occult Blood Negative Urine Nitrite Negative Urine Bilirubin Negative Urine Urobilinogen Normal Ur Leukocyte Esterase 500 H Urine RBC 0 SEEN Urine WBC 0-5 SEEN Ur Squamous Epith Cells 0-5 SEEN Urine Bacteria 0 SEEN Urine Mucus 0 SEEN - Rhythm Strip Rhythm Strip: Sinus Rhythm Rate: 65 Ectopy: None - EKG Initial EKG Interpretation: Sinus Rhythm - Sinus rhythm at [address] interval 170 ms. QTC of 403 ms. LVH. No evidence of ST elevation or depression at this time. - Medical Decision Making Appears well and nontoxic. Benign abdominal exam. EKG nonischemic. Lab work within normal limits. Chest x-ray interpreted by myself shows hyperinflation with concern for chronic emphysematous changes. No acute process. Radiology concurs. Urine shows no evidence of infection. CT of the abdomen pelvis shows significant stool burden but otherwise within normal limits. After speaking with the patient as well as her [id number] who is at the bedside and is a nurse patient will be discharged home and will start a bowel regimen. Asked to follow-up with primary care and return for any new or worsening symptoms. Patient and [id number] agree and patient discharged in stable condition. Impression: 1. Abdominal pain 2. Atypical chest pain 3. Constipation ED Disposition - Plan for ED Patient: Disposition: Home or Assisted Living Instructions: ED Chest Pain, Uncertain Cause (Child), ED Constipation (Adult) Referrals: Sierra Pinzon DO [Primary Care Provider] - 2 Days
[2020-05-23 12:32] VITALS: BP 133/88; PULSE 60; RESP 18; O2SAT 100
[2020-05-23 12:51] VITALS: BP 133/88; PULSE 65; RESP 16; O2SAT 97
--- NOTE | 2020-05-23 12:56 | CHAPLAIN ---
Type of Pastoral Visit ___ Initial Visit ___ Follow-up Visit ___ On-call Visit ___ General Patient Visit ___ Spiritual Assessment ___ Family Conference ___ Bereavement ___ Rapid Response ___ Code Blue _x__ Other (describe below) Pastoral Care Referral From ___ Patient _x__ Family ___ Nurse ___ Physician ___ Other Sports Coach Or Instructor ___ [employer] Employee [employer] ___ Other (describe below) Sacrament/Intervention _x__ Active listening ___ Anointing ___ Yarsani ___ Bereavement ___ Communion ___ Kacey exploration ___ ___ Life review _x__ Prayer ___ Reconciliation ___ Sacrament of Sick _x__ Supportive presence ___ Wedding ___ Other (describe below) Pastoral Comments during rounding in ED a family member of patient asked for spiritual care support and prayer; gave presence and prayer
== END 2020-05-23 12:52 | disposition home or self-care (01) ==
PROVIDERS: Emergency Provider Emergency Medicine; PCP Family Medicine
DX: R07.89 Other chest pain (principal); R10.9 Unspecified abdominal pain; K59.00 Constipation, unspecified; I10 Essential (primary) hypertension; G30.9 Alzheimer's disease, unspecified; Z90.49 Acquired absence of other specified parts of digestive tract; Z79.82 Long term (current) use of aspirin; Z79.899 Other long term (current) drug therapy
CPT/HCPCS: 71045; 74177; 80053; 81001; 83690; 84484; 85025; 93005; 99283; Q9967; A4216

== ENCOUNTER 2020-06-16 09:40 | Emergency (ER) | payer MEDICARE, OTHER, SELFPAY ==
[2020-06-16 09:41] VITALS: BP 164/79; PULSE 80; RESP 18; TEMP 36.6; O2SAT 99; BMI 26.6
--- NOTE | 2020-06-16 09:59 | CT_ITS ---
STUDY: CT BRAIN WITHOUT CONTRAST REASON FOR EXAM: Female, 79 years old. INTERMITTENT HEADACHES--CURRENTLY X2 DAYS -- SOME NAUSEA -- HX-BREAST CA W/ MASECTOMY RADIATION DOSAGE (If Supplied By Facility): CTDIvol = ( 44.99 ) mGy, DLP = ( 829.85 ) mGycm TECHNIQUE: Transaxial CT imaging of the brain was performed without administration of intravenous contrast material. Individualized dose optimization techniques were used for this CT. COMPARISON: 09/19/2019 FINDINGS: Normal soft tissue structures. There is hyperostosis frontalis internus. Normal size ventricles and extra-axial spaces for the patient''s age. Normal white matter tracts of the cerebral hemispheres. Normal basal ganglia and thalami. Normal brainstem. Normal cerebellum. There is no intracranial hemorrhage. There are no findings of an acute ischemic infarction. Normal visualized paranasal sinuses. CT/Brain/Head without Contrast IMPRESSION: Normal unenhanced CT scan of the brain. Electronically Signed: Yordan Maldonado MD at 10:49 EST Tel , Service support ,
--- NOTE | 2020-06-16 10:02 | ED.VIS.HA ---
History of Present Illness Chief Complaint: Headache Narrative: Patient presenting for evaluation secondary to headache. Patient has an underlying history of dementia, she lives at home with her son. Patient apparently deals with intermittent right-sided headaches. Son who is providing history states that these used to be very intermittent, only occurring maybe once a month. He states that however they have been increasing in frequency and are associated with a couple headaches per week. They come on gradually are associated with throbbing pain over the right side of the head. No real exacerbating factors. No fevers nausea vomiting diarrhea or neurologic changes. Patient unfortunately due to her dementia forgets that she gets these headaches, and every time she gets when she becomes very anxious about it and states that she has never had headaches like this before. Patient is presenting with a characteristic headache today. Review of systems otherwise negative. Past Medical History - Allergies and Home Meds Allergies/Adverse Reactions: Allergies JOEL Inhibitors Allergy (Verified 06/16/20 09:45) Swelling atenolol Allergy (Verified 06/16/20 09:45) Unknown citalopram [From Celexa] Allergy (Verified 06/16/20 09:45) Unknown nitrofurantoin [From Macrobid] Allergy (Verified 06/16/20 09:45) Unknown Penicillins Allergy (Verified 06/16/20 09:45) Rash ondansetron [From Zofran (as hydrochloride)] Adverse Reaction (Verified 06/16/20 09:45) Unknown Primary Care Physician: Sierra Pinzon DO [Primary Care Provider] - Prior records reviewed: Yes Past Medical History: - - Hypertension, hyperlipidemia, anxiety, dementia Surgical History: - - Hysterectomy, left total mastectomy, cholecystectomy, tonsillectomy. Lives: With Family Smoking Status: Never smoker Alcohol: None Drugs: None - Family History Maternal Family History: Family History (Last Updated 01/28/20 @ 11:42 by Zahra Alcocer) Father CVA (cerebral vascular accident) Prostate cancer Family History: Reports: - - There with TIA, heart disease later in life, lived into 90s. Paternal Family History: Family History (Last Updated 01/28/20 @ 11:42 by Zahra Alcocer) Father CVA (cerebral vascular accident) Prostate cancer Family History: Reports: - - Father with diabetes, hypertension and history of a stroke. Sibling Family History: Family History (Last Updated 01/28/20 @ 11:42 by Zahra Alcocer) Father CVA (cerebral vascular accident) Prostate cancer Family History: Reports: - - Patient brother with diabetes mellitus history. Review of Systems All systems negative except as indicated General: Denies: Chills, Fever, Sweats Eyes: Denies: Visual changes - bilaterally, Diplopia ENT: Denies: Rhinorrhea, Sore throat Cardiovascular: Denies: Chest pain, Palpitations Respiratory: Denies: Dyspnea, Cough, Dyspnea on exertion Gastrointestinal: Denies: Abdominal pain, Nausea, Vomiting, Diarrhea, Melena, Hematochezia Genitourinary: Denies: Dysuria, Hematuria, Frequency Musculoskeletal: Denies: Back pain, Extremity Pain Skin: Denies: Rash, Wounds Neurological: Reports: Headache Physical Exam Vital Signs/Narrative: Vital Signs Temp Pulse Resp BP Pulse Ox 06/16/20 09:41 97.9 F 80 18 164/79 H 99 Inital Vital Signs reviewed: Yes General: Well nourished, Well developed Head: NC, AT. Negative for: Tenderness, Temporary Artery Tenderness Eyes: Perrl, EOMI, - - Funduscopy was limited secondary to miosis but no obvious evidence of retinal hemorrhages or papilledema. ENT: Moist mucous membranes, No rhinorrhea Neck: Supple, No Lymphadenopathy, No JVD, Nontender, No Meningismus Cardiovascular: Regular rate, Regular rhythm, No murmurs Respiratory: No distress, CTA bilaterally, Chest nontender Abdomen: Soft, Nontender, Nondistended, Normal bowel sounds Back: Nontender, Normal Inspection Extremities: Nontender, No edema Skin: Normal color, No rash Neuro: Alert, Oriented x3, Cranial nerves II-XII grossly intact, Normal Strength, Normal Sensation, Normal DTR, Normal Gait Psychological: Normal affect Diagnostic/Tx/Re-eval Clinical Impression(s) from Imaging Studies Brain CT 06/16/20 09:59 IMPRESSION: Normal unenhanced CT scan of the brain. Electronically Signed: Yordan Maldonado MD at 10:49 EST Tel , Service support , - Medical Decision Making Patient presented for evaluation secondary to headache. Patient was evaluated with a head CT given the increased frequency of these headaches, this was found to be negative per radiology. She was given a dose of IM Toradol did have some improvement. I had a discussion with patient's son, who states that often times an additional dose of Ativan will help with the patient's symptoms. She was administered this in the ER. Patient has been having issues with increasing frequency of these headaches, I do believe that she would benefit from a outpatient neurology referral. Patient will be provided this. Patient was discharged in stable condition. ED Disposition - Plan for ED Patient: Disposition: Home or Assisted Living Diagnosis: Chronic headaches Instructions: ED Headache Unspecified Referrals: Danish Jewell MD [STAFF PHYSICIAN] - As soon as possible
[2020-06-16] MEDS: Ketorolac 15 MG/ML Vial IM (10:13)
[2020-06-16] MEDS: LORazepam 0.5 MG Tablet PO (11:22)
== END 2020-06-16 11:29 | disposition home or self-care (01) ==
PROVIDERS: Emergency Provider Emergency Medicine; PCP Family Medicine
DX: R51.9 Headache, unspecified (principal); I10 Essential (primary) hypertension; E78.5 Hyperlipidemia, unspecified; F41.9 Anxiety disorder, unspecified; F03.90 Unspecified dementia, unspecified severity, without behavioral disturbance, psychotic disturbance, mood disturbance, and anxiety; Z79.899 Other long term (current) drug therapy
CPT/HCPCS: 70450; 96372; 99283

== ENCOUNTER → 2021-03-07 | Outpatient (CLI) | payer MEDICARE, OTHER, SELFPAY ==
[2021-03-07 09:43] LABS: Color, Urine Yellow (Yellow); Glucose, Dipstick Normal (Normal); Ketone-Dipstick Negative (Negative); Leukocyte Esterase-Dipstick 100 /ul (Negative); Nitrite-Dipstick Negative (Negative); Occult Blood-Urine 10 /ul (Negative); Protein-Dipstick Negative (Negative); Urine Bilirubin Dipstick Negative (Negative); Urine Clarity Clear (Clear); Urine Urobilinogen Normal (Normal)
== END | disposition home or self-care (01) ==
LOC: LABSPEC 08:00
PROVIDERS: PCP Family Medicine; Visit Provider Family Medicine
DX: N39.0 Urinary tract infection, site not specified (principal)
CPT/HCPCS: 81002; 87086; 87088

== ENCOUNTER 2021-05-29 16:49 | Outpatient (CLI) | payer MEDICARE, OTHER, SELFPAY ==
--- NOTE | 2021-05-29 17:35 | RAD_ITS ---
STUDY: X-RAY - ABDOMEN/PELVIS REASON FOR EXAM: Female, 80 years old. Abdominal pain and constipation. History of Alzheimer''s disease. TECHNIQUE: Two AP supine views of the abdomen and pelvis. COMPARISON: CT of the abdomen and pelvis, 05/23/2020. FINDINGS: Normal visualized lung bases. There is an unremarkable bowel gas pattern. No obstruction or small bowel distention. There is no demonstrated free abdominal air. The visualized liver, spleen and kidneys are grossly normal in size and morphology. Cholecystectomy clips are seen in the right upper quadrant. Normal soft tissue structures. Degenerative changes of the lumbar spine and hips. RAD/Abdomen Single View IMPRESSION: No evidence of acute intra-abdominal process. Electronically Signed: Bertram Ram DO at 23:01 EST Tel [phone], Service support ,
[2021-05-29 18:39] LABS: Erythrocyte Sedimentation Rate 14 mm/hr (0-30)
[2021-05-29 20:02] LABS: AST(SGOT) 15 U/L (15-37); Alanine Aminotransfer ALT/SGPT 17 U/L (13-56); Albumin, Serum 3.7 g/dL (3.2-5.0); Alkaline Phosphatase 55 U/L (45-117); Anion Gap 9 (5-15); BUN 29 mg/dL (7-18); BUN/Creat Ratio 19.6 RATIO (10-20); CRP < 2.90 mg/L (0.0-3.0); Calcium,Total 9.6 mg/dL (8.5-10.1); Chloride 102 mmol/L (98-107); Creatinine, Serum 1.48 mg/dL (0.55-1.02); EST Glomerular Filtration Rate 36 mL/min (>60); Est Glom Filt Rate - Afr Amer 44 mL/min (>60); Globulin 3.7 g/dL (2.2-4.2); Glucose 92 mg/dL (74-106); Potassium 4.4 mmol/L (3.5-5.1); Protein, Total 7.4 g/dL (6.4-8.2); Sodium Level 139 mmol/L (136-145); T4 Free Direct 0.75 ng/dL (0.76-1.46); Thyroid Stim Hormone (TSH) 1.86 uIU/mL (0.358-3.74)
[2021-05-29 20:04] LABS: Vitamin D,25 Hydroxy 111.6 ng/mL
[2021-05-29 20:09] LABS: Hemoglobin A1c < 3.8 % (3.8-5.6)
== END 2021-05-29 23:59 | disposition short-term general hospital (02) ==
PROVIDERS: PCP Family Medicine; Referring Provider Family Medicine; Visit Provider Family Medicine
DX: R10.9 Unspecified abdominal pain (principal); E55.9 Vitamin D deficiency, unspecified; K59.00 Constipation, unspecified; R73.03 Prediabetes
CPT/HCPCS: 36415; 74018; 80053; 82306; 83036; 84439; 84443; 85652; 86140

== ENCOUNTER 2021-07-24 13:12 | Emergency (ER) | payer MEDICARE, OTHER, SELFPAY ==
[2021-07-24 13:13] VITALS: BP 158/72; PULSE 70; RESP 14; TEMP 36.9; O2SAT 97; BMI 23.4
--- NOTE | 2021-07-24 13:28 | CT_ITS ---
STUDY: CT CERVICAL SPINE WITHOUT CONTRAST REASON FOR EXAM: Female, 80 years old. trauma RADIATION DOSAGE (If Supplied By Facility): CTDIvol = ( 18.05 ) mGy, DLP = ( 302.62 ) mGycm TECHNIQUE: High resolution transaxial imaging was performed without contrast material. Sagittal and coronal images were reconstructed. Individualized dose optimization techniques were used for this CT. COMPARISON: 09/19/2019 FINDINGS: Normal craniovertebral junction. There are degenerative changes of the anterior atlantoaxial articulation. Normal odontoid process. Normal cervical lordosis. Normal vertebral bodies and posterior osseous elements. C2-3: Normal endplates. Normal disc height and morphology. Normal central canal and intervertebral neuroforamina. C3-4: Moderate left facet hypertrophy produces mild left neural foraminal stenosis. No central spinal stenosis. C4-5: Mild left facet hypertrophy produces mild left neural foraminal stenosis. Central spinal stenosis. C5-6: Mild broad disc osteophyte complex and left uncovertebral hypertrophy produces mild spinal stenosis and moderate left neural foraminal stenosis. C6-7: Mild broad disc osteophyte complex and left uncovertebral hypertrophy produces mild spinal stenosis and moderate left neural foraminal stenosis. C7-T1: Normal endplates. Normal disc height and morphology. Normal central canal and intervertebral neuroforamina. Normal visualized soft tissue structures. CT/Spine Cervical without Contras IMPRESSION: No acute fracture or subluxation. Electronically Signed: Yordan Maldonado MD at 14:22 EST ,
--- NOTE | 2021-07-24 13:28 | CT_ITS ---
STUDY: CT BRAIN WITHOUT CONTRAST REASON FOR EXAM: Female, 80 years old. trauma RADIATION DOSAGE (If Supplied By Facility): CTDIvol = ( 47.06 ) mGy, DLP = ( 872.68 ) mGycm TECHNIQUE: Transaxial CT imaging of the brain was performed without administration of intravenous contrast material. Individualized dose optimization techniques were used for this CT. COMPARISON: 06/16/2020 FINDINGS: Normal soft tissue structures. There is hyperostosis frontalis internus. There is moderate cerebral atrophy with widening of the extra-axial spaces and ventricular dilatation. There are areas of decreased attenuation within the white matter tracts of the supratentorial brain, consistent with microvascular disease changes. Normal basal ganglia and thalami. Normal brainstem. Normal cerebellum. There is no intracranial hemorrhage. There are no findings of an acute ischemic infarction. Normal visualized paranasal sinuses. CT/Brain/Head without Contrast IMPRESSION: Chronic involutional changes of the brain. Electronically Signed: Yordan Maldonado MD at 14:15 EST ,
--- NOTE | 2021-07-24 13:29 | EDS_ITS ---
HPI History of Present Illness Chief Complaint: Fall Narrative Narrative: Patient sustained a mechanical fall while walking with her caregiver. She hit her head but she did not pass out she is not anticoagulated she has no neck pain she is denying any extremity injury no other injury no face injury chest pain or abdominal pain. No nausea or vomiting. [facility] Medical History Alzheimer disease Arthritis Breast cancer HTN (hypertension) Knee pain Severe headache Home Medications aspirin 81 mg PO DAILY 11/07/16 [History Last Taken 12/16/16] calcium carbonate-vitamin D3 1 ea PO DAILY 11/07/16 [History Last Taken Unknown] hydrochlorothiazide 12.5 mg PO DAILY 11/07/16 [History Last Taken Unknown] losartan 50 mg PO DAILY 11/07/16 [History Last Taken 12/22/16 06:00] meloxicam 15 mg PO DAILY 11/07/16 [History Last Taken Unknown] omeprazole 20 mg PO DAILY 11/07/16 [History Last Taken 12/22/16 06:00] ergocalciferol (vitamin D2) 1.25 mg PO BEJARANO 12/21/16 [History Last Taken Unknown] lorazepam 0.5 mg tablet 0.5 mg PO DAILY tab 01/28/20 [History Last Taken Unknown] memantine 10 mg tablet 10 tab PO BID 01/28/20 [History Last Taken Unknown] sertraline 100 mg tablet 100 mg PO DAILY 11/24/20 [History Last Taken Unknown] quetiapine 75 mg PO DAILY 07/24/21 [History Last Taken Unknown] Allergy/AdvReac Type Severity Reaction Status Date / Time JOEL Inhibitors Allergy Swelling Verified 07/24/21 13:18 atenolol Allergy Unknown Verified 07/24/21 13:18 citalopram [From Celexa] Allergy Unknown Verified 07/24/21 13:18 nitrofurantoin Allergy Unknown Verified 07/24/21 13:18 [From Macrobid] Penicillins Allergy Rash Verified 07/24/21 13:18 ondansetron AdvReac Unknown Verified 07/24/21 13:18 [From Zofran (as hydrochloride)] Family History Father CVA (cerebral vascular accident) Prostate cancer Surgical History History of hysterectomy History of mastectomy History of tonsillectomy Hx of cholecystectomy Social History Smoking Status: Never smoker ROS ROS ED ROS Narrative Social: Noncontributory Medications: Reviewed Past medical history: Reviewed, includes sleep apnea, hypertension, hyperlipidemia, anxiety and depression. Review of systems General: Patient has no loss of consciousness Head: Head injury as in HPI HEENT: No other facial injury Neck: No neck pain Cardiovascular: Patient denies any chest pain or palpitations Chest wall: No chest wall contusions Respiratory: There is no shortness of breath GI: There is no nausea vomiting diarrhea or abdominal pain, no abdominal wall contusions Skin: No lacerations or abrasions Neurological: Patient has no memory loss, confusion, or any focal weakness Psychiatric: No recent behavioral changes Back: No back pain, no problems with ambulation Musculoskeletal: No extremity injury All other systems are reviewed and normal EXAM Physical Exam Narrative Exam Narrative: Physical exam Vitals reviewed General: Does not appear in significant distress, no obvious injuries HEENT: No facial injury Head: Right upper forehead contusion. No abrasions or lacerations. Eyes: Extraocular movements intact Neck: No C-spine tenderness with full range of motion Heart: Regular rate normal pulses Chest wall: No chest wall pain Lungs clear lungs bilaterally with normal inspiration and expiration without tachypnea GI: Abdomen is soft and nontender there is no mass no guarding no abdominal wall contusion : Stable pelvis Musculoskeletal: Moves all extremities without any signs of trauma Skin: No abrasions or laceration Neurological: Patient is alert and oriented with no focal deficits Const Vital Signs: 07/24/21 13:13 07/24/21 13:20 Temperature 98.4 F Temperature Source Temporal Pulse Rate 70 Respiratory Rate 14 Respiratory Effort Normal Respiratory Depth Normal Respiratory Pattern Normal Blood Pressure 158/72 H Blood Pressure Mean 100 Pulse Ox 97 Oxygen Delivery Method Room Air Room Air MDM MDM MDM Narrative Medical decision making narrative: Patient has normal CT head and C-spine. She was observed and appears well. Urinalysis was negative. I will discharge in stable condition with reassurance. Lab Data Labs: Laboratory Results - last 24 hr 07/24/21 14:05 Urine Color Yellow Urine Clarity Sl. Cloudy Urine pH 5.0 Ur Specific [place] 1.025 Urine Protein 30 H Urine Glucose (UA) Normal Urine Ketones 5 H Urine Occult Blood 25 H Urine Nitrite Negative Urine Bilirubin Negative Urine Urobilinogen Normal Ur Leukocyte Esterase 500 H Urine RBC 0-5 SEEN Urine WBC 5-10 SEEN Ur Squamous Epith Cells 0-5 SEEN Urine Bacteria 2+ Urine Mucus 0 SEEN Radiography Diagnostic Testing: Clinical Impression(s) from Imaging Studies Brain CT 07/24/21 13:28 IMPRESSION: Chronic involutional changes of the brain. Electronically Signed: Yordan Maldonado MD at 14:15 EST , Cervical Spine CT 07/24/21 13:28 IMPRESSION: No acute fracture or subluxation. Electronically Signed: Yordan Maldonado MD at 14:22 EST , Discharge Plan Triage Chief Complaint: Fall ED Provider: Abdi Iqbal Dx/Rx/DC Orders Clinical Impression: Fall, Head injury Instructions: Preventing Falls How to ..., ED Head Injury (Adult) Prescriptions: No Action lorazepam 0.5 mg tablet 0.5 mg PO DAILY RF: 0 memantine 10 mg tablet 10 tab PO BID RF: 0 sertraline [Zoloft] 100 mg tablet 100 mg PO DAILY RF: 0 losartan 50 MG tablet 50 mg PO DAILY RF: 0 meloxicam 15 MG tablet 15 mg PO DAILY RF: 0 omeprazole 20 MG capsule 20 mg PO DAILY RF: 0 hydrochlorothiazide 25 MG tablet 12.5 mg PO DAILY RF: 0 calcium carbonate-vitamin D3 1 EACH tablet,chewable 1 ea PO DAILY RF: 0 aspirin 81 MG tablet,chewable 81 mg PO DAILY RF: 0 ergocalciferol (vitamin D2) 50,000 UNIT capsule 1.25 mg PO BEJARANO RF: 0 quetiapine 25 mg tablet 75 mg PO DAILY RF: 0 Primary Care Provider: Sierra Pinzon Referrals: Sierra Pinzon DO [Primary Care Provider] - 3-5 Days Disposition Disposition: Home, Self Care
[2021-07-24 14:15] LABS: Mucous, Urine 0 SEEN /hpf (<or=2+)
[2021-07-24 14:18] LABS: Color, Urine Yellow (Yellow); Glucose, Dipstick Normal (Normal); Ketone-Dipstick 5 mg/dl (Negative); Leukocyte Esterase-Dipstick 500 /ul (Negative); Nitrite-Dipstick Negative (Negative); Occult Blood-Urine 25 /ul (Negative); Protein-Dipstick 30 mg/dl (Negative); Specific Gravity, Urine 1.025 (1.002-1.030); Urine Bilirubin Dipstick Negative (Negative); Urine Clarity Sl. Cloudy (Clear); Urine Urobilinogen Normal (Normal)
[2021-07-24 14:26] LABS: Bacteria 2+ /hpf (None Seen); Red Blood Cells-Urine 0-5 SEEN /hpf (0-5); Squamous Epithelial Cells - UA 0-5 SEEN /hpf (5-10); White Blood Cells 5-10 SEEN /hpf (0-5)
[2021-07-24 15:07] VITALS: BP 145/62; PULSE 66; RESP 14; TEMP 36.9; O2SAT 98
--- NOTE | 2021-07-25 15:15 | CASEMGMT ---
SUSANNA MCKEON ED follow-up: Date of ER visit: 07/24/2021 Presenting ER complaint: fall RN MIKE placed call to patient's telephone number listed on demographics with no answer. Voice message left with call back information requesting return call if any questions, needs or concerns. SUSANNA Liang CM
== END 2021-07-24 15:08 | disposition home or self-care (01) ==
PROVIDERS: Emergency Provider Emergency Medicine; PCP Family Medicine; Visit Provider Emergency Medicine
DX: S00.83XA Contusion of other part of head, initial encounter (principal); G30.9 Alzheimer's disease, unspecified; F02.80 Dementia in other diseases classified elsewhere, unspecified severity, without behavioral disturbance, psychotic disturbance, mood disturbance, and anxiety; I10 Essential (primary) hypertension; E78.5 Hyperlipidemia, unspecified; W19.XXXA Unspecified fall, initial encounter; Z85.3 Personal history of malignant neoplasm of breast; Z79.899 Other long term (current) drug therapy; M19.90 Unspecified osteoarthritis, unspecified site; Z79.82 Long term (current) use of aspirin; G47.30 Sleep apnea, unspecified; Y93.9 Activity, unspecified; Y92.9 Unspecified place or not applicable
CPT/HCPCS: 70450; 72125; 81001; 87086; 87088; 99284

== ENCOUNTER 2021-08-30 16:14 | Emergency (ER) | payer MEDICARE, OTHER, SELFPAY ==
[2021-08-30 16:18] VITALS: BP 159/79; PULSE 75; RESP 16; TEMP 36.2; O2SAT 100; BMI 20.7
--- NOTE | 2021-08-30 17:01 | RAD_ITS ---
EXAM: XR CHEST, 1 VIEW CLINICAL INDICATION: Weakness TECHNIQUE: Frontal view of the chest. This report was created using [employer] report generation technology. COMPARISON: 05/23/2020. FINDINGS: LUNGS AND PLEURAL SPACES: Lungs are hyperinflated. No pneumothorax. No effusion. HEART: Unremarkable. Cardiac silhouette not enlarged. MEDIASTINUM: Central airways and mediastinal contour are unremarkable. BONES/JOINTS: Unremarkable. SOFT TISSUES: Unremarkable. VASCULATURE: Vascular clips left axilla. RAD/Chest 1 View (Portable) IMPRESSION: Hyperinflation consistent with COPD. No acute abnormality or change. Electronically Signed: Tristen Higgins MD at 17:46 EDT ,
--- NOTE | 2021-08-30 17:01 | CT_ITS ---
EXAM: CT HEAD WITHOUT INTRAVENOUS CONTRAST CLINICAL INDICATION: Weakness TECHNIQUE: Multiple axial images were obtained of the head without intravenous contrast. This CT exam was performed using one or more of the following dose reduction techniques: automated exposure control, adjustment of the mA and/or kV according to patient size, and/or use of iterative reconstruction technique. RADIATION DOSAGE (If Required by State): CTDIvol = 44.99 mGy, DLP = 829.85 mGycm. This report was created using [employer] report generation technology. COMPARISON: None. FINDINGS: BRAIN AND EXTRA-AXIAL SPACES: Moderate generalized atrophy. Mild low density bilaterally in the deep white matter. No intra- or extra-axial hemorrhage. No evidence of acute infarct. No intracranial mass or mass effect. There is preservation of the clark/white matter interface. Posterior fossa structures are unremarkable. No hydrocephalus. Basal cisterns are patent. BONES/JOINTS: Unremarkable. No discrete lytic or blastic abnormalities. SINUSES: Unremarkable as visualized. Clear. MASTOID AIR CELLS: Unremarkable. Clear. ORBITS: Visualized globes, extraocular muscles, optic nerves and retrobulbar fat appear unremarkable. CT/Brain/Head without Contrast IMPRESSION: Moderate generalized atrophy. Mild low density bilaterally in the deep white matter. This likely represents small vessel ischemic changes in the deep white matter. Electronically Signed: Tristen Higgins MD at 17:48 EDT ,
--- NOTE | 2021-08-30 17:12 | EDS_ITS ---
HPI History of Present Illness Chief Complaint: General Illness Informant: patient Onset/Context/Timing Onset: Days Context: Gradual Onset Timing: Continuous Quality: Weakness, confusion Location: Generalized Worsened by: Nothing Relieved by: Nothing Associated Symptoms Associated Symptoms: Visual hallucinations which have been intermittent Narrative Narrative: Patient presents with increasing weakness and confusion over the past several days. Family reports patient has been falling more frequently. Family states patient has not gotten out of bed much over the last couple of days. Patient has a history of Alzheimer's dementia and is a poor historian. Family has made arrangements for the patient to go to an extended care facility. Family states other family members are moving her stuff there now. Patient does have a bed at the extended care facility and has been accepted there. Family denies any fevers or chills. Pain only denies any dysuria or hematuria. [facility] Medical History Alzheimer disease Arthritis Breast cancer HTN (hypertension) Knee pain Severe headache Home Medications aspirin 81 mg PO DAILY 11/07/16 [History Last Taken 12/16/16] calcium carbonate-vitamin D3 1 ea PO DAILY 11/07/16 [History Last Taken Unknown] hydrochlorothiazide 12.5 mg PO DAILY 11/07/16 [History Last Taken Unknown] losartan 50 mg PO DAILY 11/07/16 [History Last Taken 12/22/16 06:00] meloxicam 15 mg PO DAILY 11/07/16 [History Last Taken Unknown] omeprazole 20 mg PO DAILY 11/07/16 [History Last Taken 12/22/16 06:00] ergocalciferol (vitamin D2) 1.25 mg PO BEJARANO 12/21/16 [History Last Taken Unknown] lorazepam 0.5 mg tablet 0.5 mg PO DAILY tab 01/28/20 [History Last Taken Unknown] memantine 10 mg tablet 10 tab PO BID 01/28/20 [History Last Taken Unknown] sertraline 100 mg tablet 100 mg PO DAILY 11/24/20 [History Last Taken Unknown] quetiapine 75 mg PO DAILY 07/24/21 [History Last Taken Unknown] levofloxacin 500 mg PO DAILY #7 tab 08/30/21 [Rx Last Taken Unknown] Allergy/AdvReac Type Severity Reaction Status Date / Time JOEL Inhibitors Allergy Swelling Verified 08/30/21 16:21 atenolol Allergy Unknown Verified 08/30/21 16:21 citalopram [From Celexa] Allergy Unknown Verified 08/30/21 16:21 nitrofurantoin Allergy Unknown Verified 08/30/21 16:21 [From Macrobid] Penicillins Allergy Rash Verified 08/30/21 16:21 ondansetron AdvReac Unknown Verified 08/30/21 16:21 [From Zofran (as hydrochloride)] Family History Father CVA (cerebral vascular accident) Prostate cancer Surgical History History of hysterectomy History of mastectomy History of tonsillectomy Hx of cholecystectomy Social History Smoking Status: Never smoker ROS ROS ED Constitutional Constitutional ED: Denies chills or fever(s) Eyes Eyes: Reports blurry vision left and other Details: Left eye pain ; Denies change in vision ENT ENT ED: Denies rhinorrhea or sore throat Cardiovascular Cardiovascular: Denies chest pain or palpitations Respiratory/Chest Respiratory/Chest: Denies cough or dyspnea Gastrointestinal Gastrointestinal: Denies nausea or vomiting Genitourinary Genitourinary ED: Denies dysuria or hematuria Musculoskeletal Musculoskeletal: Denies back pain or neck pain Integumentary Denies abscess or rash Neurologic Neurologic: Reports headache(s); Denies weakness Allergic/Immunologic Allergic/Immunologic ED: Denies mouth swelling or urticaria EXAM Physical Exam Const Vital Signs: 08/30/21 16:18 08/30/21 17:02 08/30/21 18:16 Temperature 97.1 F L Temperature Source Temporal Pulse Rate 75 79 Respiratory Rate 16 15 Respiratory Effort Normal Non-Labored Respiratory Pattern Normal Blood Pressure 159/79 H 171/78 H Blood Pressure Mean 105 109 Pulse Ox 100 99 Oxygen Delivery Method Room Air Room Air Positive well nourished and well developed General Appearance ED: well developed and NAD Eyes PERRL and EOMs intact bilaterally Neck supple Resp normal respiratory effort and clear to auscultation bilaterally Cardio regular rate and regular rhythm GI non-tender Palpation: soft Neuro CN's II-XII intact bilaterally and no sensory deficits noted Sensorium / Orientation: alert Motor Exam: strength 5/5 throughout MDM MDM MDM Narrative Medical decision making narrative: CBC showed a mild anemia with a hemoglobin of 10.8 and hematocrit of 32.5. Comprehensive metabolic profile showed a slightly elevated BUN of 30 and creatinine of 1.30. These are consistent with prior results. Urinalysis shows leukocyte esterase of 500 with 25-50 white blood cells and 4+ bacteria. There were positive nitrites. Occult blood was 50 with 10-25 red blood cells. Urine culture was ordered. CT scan of the brain was obtained. There is no acute intracranial abnormality. There is mild atrophy noted. This was interpreted by the radiologist and reviewed by myself. Portable 1 view chest x-ray was obtained. On my interpretation, lung jarrett are clear. There is hyperinflation noted. There is normal cardiac silhouette. Bony thorax is normal. There is no acute process noted. Radiologist also interpreted the x-ray and agrees. Patient was given a dose of Ativan and Levaquin here. Patient was given a prescription for Levaquin. Patient has a bed arranged at [facility]. Patient will be able to be discharged there. Patient was given a prescription for Levaquin. Family understood and was agreeable with the plan. All questions were answered. Lab Data Attestation: I reviewed the patient's lab results. Labs: Laboratory Results - last 24 hr 08/30/21 08/30/21 08/30/21 17:10 17:10 18:03 WBC 6.8 RBC 3.66 L Hgb 10.8 L Hct 32.5 L MCV 88.8 MCH 29.5 MCHC 33.2 RDW Std Deviation 46.1 H RDW Coeff of [place]elitza 14.2 Plt Count 175 MPV 9.2 Immature Gran % (Auto) 0.400 Neut % (Auto) 72.8 H Lymph % (Auto) 16.6 L [place] % (Auto) 7.8 Eos % (Auto) 1.8 Baso % (Auto) 0.6 Absolute Neuts (auto) 4.9 Absolute Lymphs (auto) 1.12 Nucleated RBC % 0 Sodium 142 Potassium 4.1 Chloride 111 H Carbon Dioxide 26.0 Anion Gap 5 BUN 30 H Creatinine 1.30 H Estim Creat Clear Calc 36.28 Est GFR (MDRD) Af Amer 51 L Est GFR (MDRD) Non-Af 42 L BUN/Creatinine Ratio 23.1 H Glucose 99 Calcium 9.4 Total Bilirubin 0.40 AST 14 L ALT 10 L Alkaline Phosphatase 47 Total Protein 6.8 Albumin 3.4 Globulin 3.4 Albumin/Globulin Ratio 1.0 Urine Color Yellow Urine Clarity Sl. Cloudy Urine pH 6.0 Ur Specific [place] 1.015 Urine Protein 30 H Urine Glucose (UA) Normal Urine Ketones 5 H Urine Occult Blood 50 H Urine Nitrite Positive H Urine Bilirubin Negative Urine Urobilinogen Normal Ur Leukocyte Esterase 500 H Urine RBC 10-25 SEEN Urine WBC 25-50 SEEN Ur Squamous Epith Cells 0-5 SEEN Urine Bacteria 4+ Urine Mucus 0 SEEN Radiography Diagnostic Testing: Clinical Impression(s) from Imaging Studies Brain CT 08/30/21 17:01 IMPRESSION: Moderate generalized atrophy. Mild low density bilaterally in the deep white matter. This likely represents small vessel ischemic changes in the deep white matter. Electronically Signed: Tristen Higgins MD at 17:48 EDT , Chest X-Ray 08/30/21 17:01 IMPRESSION: Hyperinflation consistent with COPD. No acute abnormality or change. Electronically Signed: Tristen Higgins MD at 17:46 EDT , Discharge Plan Triage Chief Complaint: General Illness ED Provider: Charly Amaya Dx/Rx/DC Orders Clinical Impression: Urinary tract infection, Alzheimer's dementia Instructions: ED CYSTITIS Female Adult Prescriptions: New levofloxacin [levofloxacin] 500 MG tablet 500 mg PO DAILY Qty: 7 RF: 0 No Action lorazepam 0.5 mg tablet 0.5 mg PO DAILY RF: 0 memantine 10 mg tablet 10 tab PO BID RF: 0 sertraline [Zoloft] 100 mg tablet 100 mg PO DAILY RF: 0 losartan 50 MG tablet 50 mg PO DAILY RF: 0 meloxicam 15 MG tablet 15 mg PO DAILY RF: 0 omeprazole 20 MG capsule 20 mg PO DAILY RF: 0 hydrochlorothiazide 25 MG tablet 12.5 mg PO DAILY RF: 0 calcium carbonate-vitamin D3 1 EACH tablet,chewable 1 ea PO DAILY RF: 0 aspirin 81 MG tablet,chewable 81 mg PO DAILY RF: 0 ergocalciferol (vitamin D2) 50,000 UNIT capsule 1.25 mg PO BEJARANO RF: 0 quetiapine 25 mg tablet 75 mg PO DAILY RF: 0 Primary Care Provider: Sierra Pinzon Referrals: Sierra Pinzon DO [Primary Care Provider] - 5-7 Days Disposition Disposition: Retirement Facility Discharge Location: [facility]
[2021-08-30 17:18] LABS: Absolute Lymphocyte Count 1.12 X10^3/uL (0.83-4.51); Absolute Neutrophil Count 4.9 X10^3/uL (2.0-7.7); Basophil# 0.04 X10^3/uL; Basophil% 0.6 % (0-1); Eosinophil# 0.12 X10^3/uL; Eosinophils% 1.8 % (0-5); Hematocrit 32.5 % (37-47); Hemoglobin 10.8 g/dL (12.0-15.0); Lymphocyte # 1.12 X10^3/ul (0.83-4.51); Lymphocyte % 16.6 % (19-41); Mean Corp Hgb Conc 33.2 g/dL (32-36); Mean Corpuscular Hgb 29.5 pg (27.0-32.0); Mean Corpuscular Volume 88.8 fL (81-99); Mean Platelet Vol. 9.2 fl (6.2-12.0); Monocyte# 0.53 X10^3/uL; Monocyte% 7.8 % (0-10); NRBC Flagged by Analyzer 0 % (0-5); Neutrophil # 4.92 X10^3/uL (2.7-7.7); Neutrophil % 72.8 % (47-70); Platelet Count 175 K/mm3 (150-450); RBC Distribution Width CV 14.2 % (11.6-14.6); RBC Distribution Width SD 46.1 fl (35.1-43.9); Red Blood Count 3.66 M/mm3 (4.2-5.4); White Blood Count 6.8 K/mm3 (4.4-11.0)
[2021-08-30 17:35] LABS: AST(SGOT) 14 U/L (15-37); Alanine Aminotransfer ALT/SGPT 10 U/L (13-56); Albumin, Serum 3.4 g/dL (3.2-5.0); Alkaline Phosphatase 47 U/L (45-117); Anion Gap 5 (5-15); BUN 30 mg/dL (7-18); BUN/Creat Ratio 23.1 RATIO (10-20); Calcium,Total 9.4 mg/dL (8.5-10.1); Chloride 111 mmol/L (98-107); EST Glomerular Filtration Rate 42 mL/min (>60); Est Glom Filt Rate - Afr Amer 51 mL/min (>60); Estimated Creatinine Clearance 36.28 ml/min; Globulin 3.4 g/dL (2.2-4.2); Glucose 99 mg/dL (74-106); Potassium 4.1 mmol/L (3.5-5.1); Protein, Total 6.8 g/dL (6.4-8.2); Sodium Level 142 mmol/L (136-145)
[2021-08-30 18:11] LABS: Mucous, Urine 0 SEEN /hpf (<or=2+)
[2021-08-30 18:12] LABS: Color, Urine Yellow (Yellow); Glucose, Dipstick Normal (Normal); Ketone-Dipstick 5 mg/dl (Negative); Leukocyte Esterase-Dipstick 500 /ul (Negative); Nitrite-Dipstick Positive (Negative); Occult Blood-Urine 50 /ul (Negative); Protein-Dipstick 30 mg/dl (Negative); Specific Gravity, Urine 1.015 (1.002-1.030); Urine Bilirubin Dipstick Negative (Negative); Urine Clarity Sl. Cloudy (Clear); Urine Urobilinogen Normal (Normal)
[2021-08-30 18:16] VITALS: BP 171/78; PULSE 79; RESP 15; O2SAT 99
[2021-08-30 18:37] LABS: Bacteria 4+ /hpf (None Seen); Red Blood Cells-Urine 10-25 SEEN /hpf (0-5); Squamous Epithelial Cells - UA 0-5 SEEN /hpf (5-10); White Blood Cells 25-50 SEEN /hpf (0-5)
[2021-08-30] MEDS: LORazepam 2 MG/ML Syringe 0.5 MG IV (19:07)
[2021-08-30] MEDS: levoFLOXacin IV 500 MG/100 ML BAG 100 MG IV (19:19)
== END 2021-08-30 20:39 | disposition skilled nursing facility (03) ==
PROVIDERS: Emergency Provider Emergency Medicine; PCP Family Medicine; Visit Provider Emergency Medicine
DX: N39.0 Urinary tract infection, site not specified (principal); F02.80 Dementia in other diseases classified elsewhere, unspecified severity, without behavioral disturbance, psychotic disturbance, mood disturbance, and anxiety; G30.9 Alzheimer's disease, unspecified; D64.9 Anemia, unspecified; I10 Essential (primary) hypertension; Z85.3 Personal history of malignant neoplasm of breast; M19.90 Unspecified osteoarthritis, unspecified site; Z79.82 Long term (current) use of aspirin; Z79.899 Other long term (current) drug therapy
CPT/HCPCS: 70450; 71045; 80053; 81001; 85025; 87077; 87086; 87088; 87186; 96365; 96375; 99284; J7050; A4216

== ENCOUNTER → 2021-11-07 05:00 | Outpatient (REF) | payer MEDICARE, OTHER, SELFPAY ==
[2021-11-07 07:36] LABS: Anion Gap 6 (5-15); BUN 30 mg/dL (7-18); BUN/Creat Ratio 22.9 RATIO (10-20); Calcium,Total 8.8 mg/dL (8.5-10.1); Chloride 113 mmol/L (98-107); Creatinine, Serum 1.31 mg/dL (0.55-1.02); EST Glomerular Filtration Rate 42 mL/min (>60); Est Glom Filt Rate - Afr Amer 50 mL/min (>60); Glucose 95 mg/dL (74-106); Potassium 3.9 mmol/L (3.5-5.1); Sodium Level 143 mmol/L (136-145)
== END ==
LOC: OLS.DANBUR 05:00
PROVIDERS: PCP Family Medicine; Visit Provider Family Medicine
DX: I10 Essential (primary) hypertension (principal); G30.9 Alzheimer's disease, unspecified
CPT/HCPCS: 36415; 80048

== ENCOUNTER → 2021-12-09 02:40 | Outpatient (REF) | payer MEDICARE, OTHER, SELFPAY ==
[2021-12-09 09:05] LABS: Color, Urine Yellow (Yellow); Glucose, Dipstick Normal (Normal); Ketone-Dipstick 50 mg/dl (Negative); Leukocyte Esterase-Dipstick 500 /ul (Negative); Nitrite-Dipstick Negative (Negative); Occult Blood-Urine 25 /ul (Negative); Protein-Dipstick 30 mg/dl (Negative); Specific Gravity, Urine 1.025 (1.002-1.030); Urine Bilirubin Dipstick Negative (Negative); Urine Clarity Cloudy (Clear); Urine Urobilinogen Normal (Normal)
== END ==
LOC: OLS.DANBUR 02:40
PROVIDERS: PCP Family Medicine; Visit Provider Family Medicine
DX: N39.0 Urinary tract infection, site not specified (principal)
CPT/HCPCS: 81002; 87077; 87086; 87088; 87186